=== PATIENT | male | born 1985 | race Hispanic/Latino ===

== ENCOUNTER 2016-04-10 22:04 | Emergency (ER) | payer OTHER ==
[~2016-04-10] VITALS: Ht 172.7 cm; Wt 90.7 kg
[~2016-04-10 22:04] MED LIST: CYCLOBENZAPRINE10 M1 PO; KEFLEX500 M1 PO; MOBIC15 M1 PO; PERCOCET 5-3251 EACH PO
--- NOTE | 2016-04-10 23:06 | ED NECK/BACK PAIN COMPLAINT ---
History of Present Illness General Chief Complaint: Neck/Upper Back Pain/Injury Stated Complaint: RIGHT SIDE NECK PAIN TRAVELS TO LOWER BACK Source: patient Exam Limitations: no limitations Vital Signs & Intake/Output Vital Signs & Intake/Output Vital Signs Date Time Temp Pulse Resp B/P Pulse O2 O2 Flow FiO2 Ox Delivery Rate 04/10 2210 98.2 73 16 144/94 100 Room Air ED Intake and Output 04/11 0000 04/10 1200 Intake Total 0 Output Total Balance 0 Intake, Oral 0 Patient 200 lb Weight Allergies Coded Allergies: No Known Allergies (09/03/15) Reconcile Medications Cephalexin (Keflex) 500 MG CAPSULE 1 CAP PO TID PARONYCHIA Cyclobenzaprine HCl 10 MG TABLET 1 TAB PO BID PRN PAIN Cyclobenzaprine HCl 10 MG TABLET 1 TAB PO 4 TIMES/DAY PRN MUSCLE SPASM Ibuprofen 600 MG TABLET 1 TAB PO TID PRN pain with food Meloxicam (Mobic) 15 MG TABLET 1 TAB PO DAILY PRN PAIN Oxycodone HCl/Acetaminophen (Percocet 5-325 MG Tablet) 5 MG-325 MG TABLET 1 TAB PO BID PRN PAIN Triage Note: PT TO ED FOR R LATERAL NECK PAIN THAT BEGAN AROUND NOON TODAY. DID NOT TRY ANYTHING OTC. Triage Nurses Notes Reviewed? yes Onset: Gradual Duration: hour(s):, waxing and waning Timing: recent history Location: right neck/shoulder Radiation: none Context: "I'm not sure... I work as a precision machinist." Left handed. Method of Injury: unknown Loss of Consciousness: no loss of consciousness Modifying Factors: movement Associated Symptoms: muscle spasm HPI: 30 yo gentleman presents with right upper back/right neck muscle spasm since this past afternoon , of uncertain etiology. He notes that his muscles feel tight. He has no weakness, numbness, or shooting pains. He has not yet taken any pain medications. He is otherwise well. Past History Travel History Traveled to [place] past 21 day No Medical History Any Pertinent Medical History? see below for history Neurological: NONE EENT: NONE Cardiovascular: NONE Respiratory: NONE Gastrointestinal: NONE Hepatic: NONE Renal: NONE Musculoskeletal: NONE Psychiatric: NONE Endocrine: NONE Blood Disorders: NONE Cancer(s): NONE Tetanus Vaccine: 09/03/15 Surgical History Surgical History: non-contributory Psychosocial History What is your primary language Ken[place] Tobacco Use: Never used ETOH Use: denies use Illicit Drug Use: denies illicit drug use Family History Hx Contributory? No Review of Systems Review of Systems Constitutional: Reports: no symptoms. Eyes: Reports: no symptoms. Ears, Nose, Throat, Mouth: Reports: no symptoms. Respiratory: Reports: no symptoms. Cardiovascular: Reports: no symptoms. Gastrointestinal/Abdominal: Reports: no symptoms. Musculoskeletal: Reports: no symptoms. Skin: Reports: no symptoms. Neurological/Psychological: Reports: no symptoms. All Other Systems: Reviewed and Negative Physical Exam Physical Exam General Appearance: well developed/nourished, mild distress Head: atraumatic Eyes: Bilateral: normal appearance. Ears, Nose, Throat, Mouth: hearing grossly normal Neck: muscle spasm in right trapezius, no focal bony tenderness. Respiratory: normal breath sounds Cardiovascular: regular rate/rhythm Gastrointestinal: soft, non-tender Back: normal inspection Extremities: normal range of motion Neurologic/Psych: awake, alert, oriented x 3, normal mood/affect Skin: intact, normal color, warm/dry Comments: light touch, strength in lower extremities are wnl. Progress Differential Diagnosis: muscle spasm vs other. Plan of Care: Current Medications Sig/Valeri Start time Last Medication Dose Stop Time Status Admin Ibuprofen 600 MG ONCE ONE 04/10 2329 UNVr (Motrin) 04/10 2330 Departure Departure Disposition: HOME OR SELF CARE Condition: Stable Clinical Impression Primary Impression: Muscle spasm Referrals: PATIENT HAS NO PRIMARY CARE DR (PCP/Family) Departure Forms: Customer Survey General Discharge Information Prescriptions: Current Visit Scripts Ibuprofen 1 TAB PO TID PRN pain #30 TAB with food Cyclobenzaprine HCl 1 TAB PO 4 TIMES/DAY PRN MUSCLE SPASM #30 TAB Ref 1
[2016-04-10] MEDS ORDERED: CYCLOBENZAPRINE10 M1 PO (23:25)
[2016-04-10] MEDS ORDERED: IBUPROFEN600 M1 PO (23:25)
[2016-04-10 23:40] VITALS: BP 138/69
== END 2016-04-10 23:48 ==
LOC: ERH 22:04
DX: M62.838 Other muscle spasm (principal)